=== PATIENT | male | born 1935 | race Caucasian/White ===

== ENCOUNTER 2019-04-24 18:58 | Inpatient (IN) ==
[2019-04-24] MEDS ORDERED: SODIUM CHLORIDE 0.9% 1,000 ML IV STA ×2 (19:26→21:36)
[2019-04-24 20:44] LABS: Basophils % 0.1 % (0.0-0.8); Hematocrit 41.7 VOL% (42.0-52.0); Immature Granulocytes % 0.7 %; Lymphocytes # 0.7 10*3/uL (1.4-4.0); Lymphocytes % 4.7 % (21.2-54.2); Mean Corpuscular Volume 97.2 FL (87-102); Mean Platelet Volume 10.4 FL (9.6-12.0); Monocytes % 9.2 % (1.7-12.7); Neutrophils % 85.3 % (38.7-73.9); Platelet Count 158 T/CUMM (130-400); Red Blood Count 4.29 MC/CUMM (3.8-5.5); Red Cell Distribution Width 12.5 % (9.3-17.3); White Blood Count 15.2 T/CUMM (4-12)
[2019-04-24 20:53] LABS: Amorphous Crystals,Urine Occasional /HPF (Few); Apearance,Urine CLOUDY (Clear); Bacteria,Urine Many /HPF (Few); Bilirubin,Urine Negative (Negative); Blood, Urine Large mg/dL (Negative); Glucose,Urine (UA) Negative (Negative); Hyaline Casts,Urine 52 /LPF (0-3); Ketones,Urine 20 mg/dL (Negative); Mucus,Urine Many /LPF (Occasional); Nitrite,Urine Negative (Negative); Protein,Urine 100 MG/DL; RBC,Urine 13 /HPF (0-4); Urine Color Amber (Yellow); Urine Specific Gravity 1.029 (1.001-1.035); Urine Urobilinogen < 2.0 EU/DL (0.2-1.0)
[2019-04-24 20:54] LABS: PT Patient Result 11.1 SECS (9.6-12.2); Partial Thromboplastin Time 26.7 SECS (20.8-36.0)
[2019-04-24 21:11] LABS: Acetaminophen < 2.0 UG/ML (10-30); Salicylate < 2.8 MG/DL (2.8-20)
[2019-04-24] MEDS ORDERED: AMPICILLIN/SULBACTAM 3,000 MG in SODIUM CHLORIDE 0.9% 100 ML IV STA (21:11)
[2019-04-24 21:12] LABS: Band Neutrophils 1 % (0-10); Lymphocytes 7 % (20-55); Macrocytosis Slight; Platelet Estimate Adequate; Segmented Neutrophils 86 % (50-85); Total Cells Counted 100
[2019-04-24 21:45] LABS: Alanine Aminotransferase 132 U/L (16-61); Albumin 2.8 G/DL (3.4-5.0); Alkaline Phosphatase 51 U/L (45-117); Aspartate Amino Transferase 451 U/L (0-37); Blood Urea Nitrogen 23 MG/DL (7-18); CKMB % 0.9 %; Calcium 8.6 MG/DL (8.5-10.1); Estimated Glom Filtration Rate 103 ML/MIN; Glucose 105 MG/DL (74-106); Osmolality,Calculated 286.1 MOS/KG (273-304); Total Protein 6.2 G/DL (6.4-8.3)
[2019-04-24] MEDS ORDERED: ONDANSETRON 4 MG/2 ML VIAL IV PRN (22:26)
[2019-04-24] MEDS ORDERED: SODIUM CHLORIDE 0.9% 1,000 ML IV ONE (22:26)
[2019-04-24] MEDS ORDERED: LORazepam 2 MG/1 ML VIAL ONE (22:54)
[2019-04-24] MEDS ORDERED: LORazepam 2 MG/1 ML VIAL IV ONE (23:01)
[2019-04-24] MEDS ORDERED: INFLUENZA VIRUS VACCINE 0.5 ML SYRINGE IM ONE (23:23)
[2019-04-25] MEDS: SODIUM CHLORIDE 0.9% 1,000 ML IV SCH ×7 (00:42→23:06)
[2019-04-25 05:15] LABS: Basophils % 0.1 % (0.0-0.8); Hemoglobin 12.8 GM/DL (14.0-18.0); Immature Granulocytes % 0.6 %; Immature Granulocytes Absolute 0.09 #; Lymphocytes % 7.2 % (21.2-54.2); Mean Corpuscular HGB Conc 35.6 GM/DL (32-36); Mean Corpuscular Volume 98.9 FL (87-102); Monocytes % 9.2 % (1.7-12.7); Neutrophils % 82.9 % (38.7-73.9); Platelet Count 128 T/CUMM (130-400); Red Blood Count 3.64 MC/CUMM (3.8-5.5); Red Cell Distribution Width 12.8 % (9.3-17.3); White Blood Count 14.4 T/CUMM (4-12)
[2019-04-25 05:46] LABS: Albumin 2.5 G/DL (3.4-5.0); Bilirubin,Total 1.8 MG/DL (0.2-1.0); Calcium 8.1 MG/DL (8.5-10.1); Osmolality,Calculated 294.3 MOS/KG (273-304); Total Protein 5.4 G/DL (6.4-8.3)
[2019-04-25 06:47] LABS: CKMB % 0.8 %
[2019-04-25 06:50] LABS: Troponin I 5.4 NG/ML (0.00-0.045)
[2019-04-25] MEDS ORDERED: ASPIRIN EC 81 MG TABLET PO SCH (09:00)
[2019-04-25] MEDS ORDERED: CETIRIZINE 10 MG TABLET PO SCH (09:00)
[2019-04-25] MEDS ORDERED: ESCITALOPRAM 10 MG TABLET PO SCH (09:00)
[2019-04-25] MEDS ORDERED: ATENOLOL 25 MG TABLET PO SCH (09:00)
[2019-04-25] MEDS ORDERED: PANTOPRAZOLE 40 MG TABLET PO SCH (09:00)
[2019-04-25 11:50] LABS: Cancer Antigen 19-9 < 1.2 U/ML (0-37)
[2019-04-25 12:09] LABS: Hepatitis B Core IgM Quant 0.07 Index; Hepatitis B Surface Ag Quant < 0.10 Index; Hepatitis B Surface Ag Result Negative (Negative); Hepatitis C Virus Ab Quant < 0.02 Index; Hepatitis C Virus Ab Result Negative (Negative)
[2019-04-25] MEDS: MORPHINE 4 MG/1 ML VIAL IV PRN ×2 (14:23→21:53)
[2019-04-25] MEDS: THIAMINE INJ 100 MG, FOLIC ACID INJ 1 MG, MULTIVITAMIN INJ 10 ML in DEXTROSE 5% NACL 0.... IV SCH (17:28)
[2019-04-25] MEDS ORDERED: LORazepam 2 MG/1 ML VIAL IV ONE (19:23)
[2019-04-26] MEDS ORDERED: PROPOFOL 1,000 MG/100 ML BOTTLE IV ONE (02:21)
[2019-04-26] MEDS ORDERED: PROPOFOL 0 MG/0 ML BOTTLE IV ONE (02:25)
[2019-04-26] MEDS: PROPOFOL 1,000 MG/100 ML BOTTLE IV SCH ×3 (02:30→22:02)
[2019-04-26 03:24] LABS: ABG Base Excess -1.1 MMOL/L (-2.5-2.5); ABG HCO3 23.5 MMOL/L (20-26); ABG Oxygen Saturation 99.8 % (95-100); ABG PCO2 41.4 MM HG (35-48); ABG PH 7.373 (7.35-7.45); ABG TCO2 21.4 MMOL/L (23-27); Allen Test Positive; Pt O2 Delivery Device Ventilator
[2019-04-26 04:00] LABS: Basophils % 0.1 % (0.0-0.8); Eosinophils % 0.4 % (0.00-10.9); Hematocrit 34.4 VOL% (42.0-52.0); Hemoglobin 11.5 GM/DL (14.0-18.0); Immature Granulocytes % 0.5 %; Immature Granulocytes Absolute 0.04 #; Lymphocytes # 0.8 10*3/uL (1.4-4.0); Mean Corpuscular HGB Conc 33.4 GM/DL (32-36); Mean Corpuscular Volume 104.2 FL (87-102); Mean Platelet Volume 10.7 FL (9.6-12.0); Monocytes % 8.8 % (1.7-12.7); Neutrophils % 80.2 % (38.7-73.9); Platelet Count 103 T/CUMM (130-400); Red Cell Distribution Width 13.2 % (9.3-17.3); White Blood Count 8.2 T/CUMM (4-12)
[2019-04-26 04:11] LABS: Albumin 2.3 G/DL (3.4-5.0); Bilirubin,Direct 0.3 MG/DL (0.0-0.20); Bilirubin,Indirect 1.6 MG/DL (0.0-1.0); Bilirubin,Total 1.9 MG/DL (0.2-1.0)
[2019-04-26 04:21] LABS: Albumin 2.3 G/DL (3.4-5.0); Bilirubin,Total 1.3 MG/DL (0.2-1.0); CKMB % 0.6 %; Calcium 7.5 MG/DL (8.5-10.1); Osmolality,Calculated 298.9 MOS/KG (273-304)
[2019-04-26 04:30] LABS: Troponin I 1.5 NG/ML (0.00-0.045)
[2019-04-26] MEDS: DEXT 5% NACL 0.45% KCL 20 MEQ 20 MEQ/1,000 ML BAG IV SCH ×3 (06:43→21:20)
[2019-04-26] MEDS: SODIUM CHLORIDE 0.9% 1,000 ML IV SCH (07:05)
[2019-04-26] MEDS ORDERED: cefTRIAXone 2,000 MG in SYRINGE 1 EACH IV SCH (08:30)
[2019-04-26] MEDS ORDERED: LANSOPRAZOLE ODT 30 MG TABLET PER TUBE SCH (09:00)
[2019-04-26] MEDS ORDERED: THIAMINE 200 MG/2 ML VIAL IV SCH (09:00)
[2019-04-26 10:30] LABS: Apearance,Urine CLEAR (Clear); Bilirubin,Urine Negative (Negative); Blood, Urine Small mg/dL (Negative); Glucose,Urine (UA) 50 mg/dL (Negative); Ketones,Urine 20 mg/dL (Negative); Mucus,Urine Few /LPF (Occasional); Nitrite,Urine Negative (Negative); Protein,Urine Negative; RBC,Urine 2 /HPF (0-4); Urine Color Amber (Yellow); Urine Specific Gravity 1.026 (1.001-1.035); Urine Urobilinogen < 2.0 EU/DL (0.2-1.0); WBC,Urine 1 /HPF (0-6)
[2019-04-26 10:57] LABS: ABG Base Excess -1.5 MMOL/L (-2.5-2.5); ABG HCO3 22.2 MMOL/L (20-26); ABG Oxygen Saturation 98.6 % (95-100); ABG PCO2 34.2 MM HG (35-48); ABG PO2 139.6 MM HG (80-95); ABG TCO2 23.2 MMOL/L (23-27); Allen Test Positive; Pt O2 Delivery Device Ventilator
[2019-04-26 11:16] LABS: Glucose,CSF 74 MG/DL (40-70)
[2019-04-26 11:27] LABS: Appearance,CSF Clear; Lymphocytes,CSF 75 %; Monocytes,CSF 13 %; Neutrophils,CSF 13 %; Red Blood Cell,CSF 35 C/CUMM; White Blood Cell,CSF 7 C/CUMM
[2019-04-26] MEDS: cefTRIAXone 2,000 MG in SYRINGE 1 EACH IV SCH (12:01)
[2019-04-26] MEDS: ASPIRIN CHEW 81 MG TABLET PO SCH (13:10)
[2019-04-26] MEDS: AMPICILLIN INJ 2,000 MG in SODIUM CHLORIDE 0.9% 100 ML IV SCH ×3 (13:12→21:21)
[2019-04-26] MEDS: SODIUM CHLORIDE 0.9% IV SCH (13:12)
[2019-04-26] MEDS: VANCOMYCIN INJ 1,500 MG in SODIUM CHLORIDE 0.9% 500 ML IV SCH (13:12)
[2019-04-26] MEDS: GANCICLOVIR IV SCH (13:12)
[2019-04-26] MEDS ORDERED: ACYCLOVIR INJ 800 MG in SODIUM CHLORIDE 0.9% 250 ML IV SCH (13:30)
[2019-04-26] MEDS: FUROSEMIDE 40 MG/4 ML VIAL IV SCH (16:07)
[2019-04-26] MEDS: THIAMINE INJ 100 MG, FOLIC ACID INJ 1 MG, MULTIVITAMIN INJ 10 ML in DEXTROSE 5% NACL 0.... IV SCH (16:12)
[2019-04-26] MEDS: PANTOPRAZOLE 40 MG VIAL IV SCH (21:21)
[2019-04-27] MEDS: cefTRIAXone 2,000 MG in SYRINGE 1 EACH IV SCH ×2 (00:33→11:44)
[2019-04-27] MEDS: AMPICILLIN INJ 2,000 MG in SODIUM CHLORIDE 0.9% 100 ML IV SCH ×6 (00:33→21:06)
[2019-04-27] MEDS: VANCOMYCIN INJ 1,500 MG in SODIUM CHLORIDE 0.9% 500 ML IV SCH ×2 (01:19→12:52)
[2019-04-27] MEDS: SODIUM CHLORIDE 0.9% IV SCH ×2 (02:44→13:54)
[2019-04-27] MEDS: GANCICLOVIR IV SCH ×2 (02:44→13:54)
[2019-04-27 03:14] LABS: ABG Base Excess 2.6 MMOL/L (-2.5-2.5); ABG HCO3 25.8 MMOL/L (20-26); ABG Oxygen Saturation 98.9 % (95-100); ABG PCO2 34.8 MM HG (35-48); ABG PH 7.488 (7.35-7.45); ABG TCO2 26.9 MMOL/L (23-27); Allen Test Positive; Pt O2 Delivery Device Ventilator
[2019-04-27] MEDS: PROPOFOL 1,000 MG/100 ML BOTTLE IV SCH ×3 (05:05→11:54)
[2019-04-27 06:10] LABS: Basophils % 0.1 % (0.0-0.8); Eosinophils % 0.2 % (0.00-10.9); Hematocrit 30.5 VOL% (42.0-52.0); Hemoglobin 10.4 GM/DL (14.0-18.0); Immature Granulocytes % 0.2 %; Immature Granulocytes Absolute 0.02 #; Lymphocytes # 0.8 10*3/uL (1.4-4.0); Lymphocytes % 9.1 % (21.2-54.2); Mean Corpuscular HGB Conc 34.1 GM/DL (32-36); Mean Corpuscular Volume 102.7 FL (87-102); Mean Platelet Volume 10.7 FL (9.6-12.0); Monocytes % 14.9 % (1.7-12.7); Neutrophils % 75.5 % (38.7-73.9); Platelet Count 102 T/CUMM (130-400); Red Blood Count 2.97 MC/CUMM (3.8-5.5); Red Cell Distribution Width 13.1 % (9.3-17.3); White Blood Count 8.5 T/CUMM (4-12)
[2019-04-27 06:29] LABS: Albumin 2.1 G/DL (3.4-5.0); Bilirubin,Total 0.6 MG/DL (0.2-1.0); Calcium 7.5 MG/DL (8.5-10.1); Osmolality,Calculated 296.3 MOS/KG (273-304); Total Protein 4.7 G/DL (6.4-8.3)
[2019-04-27 07:04] LABS: Troponin I 0.745 NG/ML (0.00-0.045)
[2019-04-27] MEDS: ASPIRIN CHEW 81 MG TABLET PO SCH (08:30)
[2019-04-27] MEDS: FUROSEMIDE 40 MG/4 ML VIAL IV SCH ×2 (08:30→16:01)
[2019-04-27] MEDS: PANTOPRAZOLE 40 MG VIAL IV SCH ×2 (08:32→21:06)
[2019-04-27] MEDS: POTASSIUM CHLORIDE 20 MEQ/15 ML UDCUP PER TUBE SCH ×4 (09:08→21:06)
[2019-04-27] MEDS ORDERED: fentaNYL INJ 1,250 MCG in SODIUM CHLORIDE 0.9% 225 ML IV PRN (10:30)
[2019-04-27] MEDS ORDERED: GLUCAGON 1 MG VIAL IM PRN (10:46)
[2019-04-27] MEDS ORDERED: DEXTROSE 10% 250 ML BAG IV PRN (10:46)
[2019-04-27] MEDS: INSULIN LISPRO 100 UNIT/ML SUBCUT SCH ×2 (12:00→17:40)
[2019-04-27] MEDS: THIAMINE INJ 100 MG, FOLIC ACID INJ 1 MG, MULTIVITAMIN INJ 10 ML in DEXTROSE 5% NACL 0.... IV SCH (16:03)
[2019-04-27] MEDS: fentaNYL INJ 2,500 MCG in SODIUM CHLORIDE 0.9% 450 ML IV PRN ×2 (16:25→22:00)
[2019-04-27] MEDS: LACTULOSE 20 GM/30 ML UDCUP NG SCH (21:14)
[2019-04-28] MEDS: cefTRIAXone 2,000 MG in SYRINGE 1 EACH IV SCH ×2 (00:44→13:00)
[2019-04-28] MEDS: AMPICILLIN INJ 2,000 MG in SODIUM CHLORIDE 0.9% 100 ML IV SCH ×6 (00:45→21:42)
[2019-04-28] MEDS: INSULIN LISPRO 100 UNIT/ML SUBCUT SCH ×4 (00:48→18:00)
[2019-04-28] MEDS: VANCOMYCIN INJ 1,500 MG in SODIUM CHLORIDE 0.9% 500 ML IV SCH (02:00)
[2019-04-28] MEDS: SODIUM CHLORIDE 0.9% IV SCH (02:02)
[2019-04-28] MEDS: GANCICLOVIR IV SCH ×2 (02:02→14:47)
[2019-04-28] MEDS ORDERED: VANCOMYCIN INJ 1,000 MG in SODIUM CHLORIDE 0.9% 250 ML IV SCH (02:30)
[2019-04-28] MEDS: PROPOFOL 1,000 MG/100 ML BOTTLE IV SCH (04:14)
[2019-04-28 04:45] LABS: Pt O2 Delivery Device Ventilator
[2019-04-28 04:46] LABS: ABG Base Excess 2.7 MMOL/L (-2.5-2.5); ABG HCO3 26.8 MMOL/L (20-26); ABG Oxygen Saturation 98.3 % (95-100); ABG PH 7.258 (7.35-7.45); ABG TCO2 29.2 MMOL/L (23-27)
[2019-04-28 04:50] LABS: ABG PCO2 72.2 MM HG (35-48)
[2019-04-28 05:12] LABS: Basophils % 0.1 % (0.0-0.8); Eosinophils # 0.2 10*3/uL (0.0-0.87); Eosinophils % 1.6 % (0.00-10.9); Hematocrit 33.8 VOL% (42.0-52.0); Hemoglobin 11.2 GM/DL (14.0-18.0); Immature Granulocytes % 0.6 %; Immature Granulocytes Absolute 0.06 #; Lymphocytes # 1.1 10*3/uL (1.4-4.0); Lymphocytes % 10.3 % (21.2-54.2); Mean Corpuscular HGB Conc 33.1 GM/DL (32-36); Mean Corpuscular Volume 105.3 FL (87-102); Mean Platelet Volume 10.8 FL (9.6-12.0); Monocytes % 16.9 % (1.7-12.7); Neutrophils % 70.5 % (38.7-73.9); Platelet Count 111 T/CUMM (130-400); Red Blood Count 3.21 MC/CUMM (3.8-5.5); Red Cell Distribution Width 13.6 % (9.3-17.3); White Blood Count 10.5 T/CUMM (4-12)
[2019-04-28 05:31] LABS: Calcium 7.3 MG/DL (8.5-10.1); Osmolality,Calculated 299.9 MOS/KG (273-304)
[2019-04-28 05:32] LABS: Band Neutrophils 1 % (0-10); Eosinophils 2 % (0-10); Lymphocytes 13 % (20-55); Segmented Neutrophils 74 % (50-85); Total Cells Counted 100
[2019-04-28 05:33] LABS: Anisocytosis 1+; Platelet Estimate Adequate
[2019-04-28] MEDS: fentaNYL INJ 2,500 MCG in SODIUM CHLORIDE 0.9% 450 ML IV PRN (06:52)
[2019-04-28 07:04] LABS: ABG Base Excess 6.1 MMOL/L (-2.5-2.5); ABG HCO3 31.1 MMOL/L (20-26); ABG Oxygen Saturation 98.3 % (95-100); ABG PCO2 46.6 MM HG (35-48); ABG PH 7.442 (7.35-7.45); ABG PO2 120.7 MM HG (80-95); ABG TCO2 32.5 MMOL/L (23-27); Allen Test Positive; Pt O2 Delivery Device Ventilator
[2019-04-28] MEDS: LACTULOSE 20 GM/30 ML UDCUP NG SCH ×2 (10:09→21:39)
[2019-04-28] MEDS: PANTOPRAZOLE 40 MG VIAL IV SCH ×2 (10:09→21:39)
[2019-04-28] MEDS: FUROSEMIDE 40 MG/4 ML VIAL IV SCH ×3 (10:12→21:39)
[2019-04-28] MEDS: ASPIRIN CHEW 81 MG TABLET PO SCH (10:12)
[2019-04-28] MEDS ORDERED: fentaNYL INJ 2,500 MCG in SODIUM CHLORIDE 0.9% 450 ML IV PRN (11:00)
[2019-04-28 11:25] LABS: VDRL Spinal Fluid Negative (Negative)
[2019-04-28] MEDS ORDERED: AMIODARONE 150 MG/3 ML VIAL ONE (12:23)
[2019-04-28] MEDS ORDERED: AMIODARONE INJ 150 MG in DEXTROSE 5% 100 ML IV ONE ×2 (12:23→13:30)
[2019-04-28] MEDS ORDERED: PROPOFOL 200 MG/20 ML VIAL IV ONE ×2 (12:40→12:43)
[2019-04-28] MEDS ORDERED: SUCCINYLCHOLINE 200 MG/10 ML VIAL ONE (12:41)
[2019-04-28] MEDS ORDERED: SUCCINYLCHOLINE 200 MG/10 ML VIAL IV ONE (12:44)
[2019-04-28] MEDS ORDERED: MIDAZOLAM 100 MG in SODIUM CHLORIDE 0.9% 80 ML IV PRN (12:45)
[2019-04-28] MEDS: MIDAZOLAM 100 MG in DEXTROSE 5% 80 ML IV PRN (13:20)
[2019-04-28] MEDS: fentaNYL INJ 2,500 MCG in DEXTROSE 5% 450 ML IV PRN (13:22)
[2019-04-28] MEDS ORDERED: SODIUM CHLORIDE 0.9% 500 ML IV ONE (14:02)
[2019-04-28] MEDS: DEXTROSE 5% IV SCH (14:47)
[2019-04-28] MEDS: DOCUSATE/SENNA 50-8.6 MG TABLET PER TUBE SCH (15:45)
[2019-04-28] MEDS: THIAMINE INJ 100 MG, FOLIC ACID INJ 1 MG, MULTIVITAMIN INJ 10 ML in DEXTROSE 5% NACL 0.... IV SCH (16:01)
[2019-04-28] MEDS ORDERED: FUROSEMIDE 20 MG/2 ML VIAL ONE (20:38)
[2019-04-28 21:30] LABS: Specimen Source CSF
[2019-04-28 23:16] LABS: Enterovirus PCR Source CSF
[2019-04-29] MEDS: cefTRIAXone 2,000 MG in SYRINGE 1 EACH IV SCH ×2 (00:22→12:16)
[2019-04-29] MEDS: INSULIN LISPRO 100 UNIT/ML SUBCUT SCH ×4 (00:43→18:08)
[2019-04-29] MEDS ORDERED: SODIUM CHLORIDE 0.9% 500 ML IV ONE (01:50)
[2019-04-29] MEDS: DEXTROSE 5% IV SCH ×2 (02:00→15:15)
[2019-04-29] MEDS: AMPICILLIN INJ 2,000 MG in SODIUM CHLORIDE 0.9% 100 ML IV SCH ×2 (02:00→05:15)
[2019-04-29] MEDS: GANCICLOVIR IV SCH ×2 (02:00→15:15)
[2019-04-29] MEDS: PROPOFOL 1,000 MG/100 ML BOTTLE IV SCH (03:59)
[2019-04-29 04:28] LABS: Basophils % 0.2 % (0.0-0.8); Eosinophils # 0.1 10*3/uL (0.0-0.87); Eosinophils % 0.5 % (0.00-10.9); Hematocrit 31.9 VOL% (42.0-52.0); Immature Granulocytes % 0.6 %; Immature Granulocytes Absolute 0.08 #; Lymphocytes # 0.6 10*3/uL (1.4-4.0); Lymphocytes % 5.1 % (21.2-54.2); Mean Corpuscular HGB Conc 34.5 GM/DL (32-36); Mean Corpuscular Volume 100.6 FL (87-102); Mean Platelet Volume 10.9 FL (9.6-12.0); Neutrophils % 84.6 % (38.7-73.9); Platelet Count 114 T/CUMM (130-400); Red Blood Count 3.17 MC/CUMM (3.8-5.5); Red Cell Distribution Width 13.1 % (9.3-17.3); White Blood Count 12.5 T/CUMM (4-12)
[2019-04-29 04:38] LABS: ABG Base Excess 9.7 MMOL/L (-2.5-2.5); ABG HCO3 33.4 MMOL/L (20-26); ABG Oxygen Saturation 97.8 % (95-100); ABG PCO2 39.1 MM HG (35-48); ABG PH 7.536 (7.35-7.45); ABG PO2 79.8 MM HG (80-95); ABG TCO2 29.6 MMOL/L (23-27); Allen Test Positive; Pt O2 Delivery Device Ventilator
[2019-04-29 04:50] LABS: Calcium 7.1 MG/DL (8.5-10.1); Osmolality,Calculated 291.6 MOS/KG (273-304)
[2019-04-29 04:54] LABS: Albumin 1.9 G/DL (3.4-5.0); Bilirubin,Direct 0.18 MG/DL (0.0-0.20); Bilirubin,Indirect 1.2 MG/DL (0.0-1.0); Bilirubin,Total 1.4 MG/DL (0.2-1.0); Total Protein 4.8 G/DL (6.4-8.3)
[2019-04-29 05:19] LABS: Prealbumin 9.5 MG/DL (20-40)
[2019-04-29] MEDS ORDERED: MAGNESIUM SULF RIDER 2 GM in PREMIX 1 EACH IV PRN (05:59)
[2019-04-29] MEDS ORDERED: MAGNESIUM SULF RIDER 4 GM in PREMIX 1 EACH IV PRN (05:59)
[2019-04-29] MEDS: POTASSIUM CHLORIDE 20 MEQ/15 ML UDCUP PER TUBE PRN ×2 (06:17→08:18)
[2019-04-29] MEDS: LACTULOSE 20 GM/30 ML UDCUP NG SCH ×2 (08:18→20:59)
[2019-04-29] MEDS: DOCUSATE/SENNA 50-8.6 MG TABLET PER TUBE SCH (08:18)
[2019-04-29] MEDS: ASPIRIN CHEW 81 MG TABLET PO SCH (08:19)
[2019-04-29] MEDS: PANTOPRAZOLE 40 MG VIAL IV SCH ×2 (08:19→21:00)
[2019-04-29] MEDS: FUROSEMIDE 40 MG/4 ML VIAL IV SCH (08:22)
[2019-04-29] MEDS ORDERED: MAGNESIUM SULF RIDER 4 GM in PREMIX 1 EACH IV ONE (08:23)
[2019-04-29] MEDS ORDERED: DIGOXIN 0.5 MG/2 ML AMP IV ONE ×2 (08:31→09:15)
[2019-04-29] MEDS ORDERED: AMIODARONE INJ 150 MG in DEXTROSE 5% 100 ML IV ONE (08:32)
[2019-04-29] MEDS: POTASSIUM CHLORIDE 20 MEQ/15 ML UDCUP PER TUBE SCH ×4 (08:41→20:59)
[2019-04-29 09:20] LABS: ABG Base Excess 8.9 MMOL/L (-2.5-2.5); ABG HCO3 32.6 MMOL/L (20-26); ABG Oxygen Saturation 96.3 % (95-100); ABG PCO2 50.7 MM HG (35-48); ABG PH 7.443 (7.35-7.45); ABG PO2 75.9 MM HG (80-95); ABG TCO2 30.5 MMOL/L (23-27); Allen Test Positive; Pt O2 Delivery Device Ventilator
[2019-04-29] MEDS: fentaNYL INJ 2,500 MCG in DEXTROSE 5% 450 ML IV PRN (12:18)
[2019-04-29 13:34] LABS: West Nile Virus Ab, IgG, CSF Positive (Negative); West Nile Virus Ab, IgM, CSF Negative (Negative)
[2019-04-29 14:31] LABS: Adenovirus PCR Negative (Negative); Specimen Source CSF
[2019-04-29] MEDS: THIAMINE INJ 100 MG, FOLIC ACID INJ 1 MG, MULTIVITAMIN INJ 10 ML in DEXTROSE 5% NACL 0.... IV SCH (17:38)
[2019-04-30] MEDS: INSULIN LISPRO 100 UNIT/ML SUBCUT SCH ×3 (00:10→11:56)
[2019-04-30] MEDS: cefTRIAXone 2,000 MG in SYRINGE 1 EACH IV SCH (00:38)
[2019-04-30] MEDS: DEXTROSE 5% IV SCH ×2 (01:17→15:14)
[2019-04-30] MEDS: GANCICLOVIR IV SCH ×2 (01:17→15:14)
[2019-04-30 03:15] LABS: Allen Test Positive; Pt O2 Delivery Device Ventilator
[2019-04-30 03:16] LABS: ABG Base Excess 9.8 MMOL/L (-2.5-2.5); ABG HCO3 33.8 MMOL/L (20-26); ABG Oxygen Saturation 96.4 % (95-100); ABG PH 7.513 (7.35-7.45); ABG PO2 82.5 MM HG (80-95); ABG TCO2 35.1 MMOL/L (23-27)
[2019-04-30] MEDS: PROPOFOL 1,000 MG/100 ML BOTTLE IV SCH (04:12)
[2019-04-30 04:32] LABS: Basophils % 0.2 % (0.0-0.8); Eosinophils # 0.3 10*3/uL (0.0-0.87); Eosinophils % 2.4 % (0.00-10.9); Hematocrit 29.2 VOL% (42.0-52.0); Hemoglobin 9.9 GM/DL (14.0-18.0); Immature Granulocytes % 1.1 %; Immature Granulocytes Absolute 0.12 #; Lymphocytes # 0.6 10*3/uL (1.4-4.0); Mean Corpuscular HGB Conc 33.9 GM/DL (32-36); Mean Corpuscular Volume 101.4 FL (87-102); Mean Platelet Volume 11.2 FL (9.6-12.0); Monocytes % 7.5 % (1.7-12.7); Neutrophils % 83.8 % (38.7-73.9); Platelet Count 112 T/CUMM (130-400); Red Blood Count 2.88 MC/CUMM (3.8-5.5); Red Cell Distribution Width 12.9 % (9.3-17.3); White Blood Count 11.3 T/CUMM (4-12)
[2019-04-30] MEDS: fentaNYL INJ 2,500 MCG in DEXTROSE 5% 450 ML IV PRN (05:02)
[2019-04-30] MEDS: MIDAZOLAM 100 MG in DEXTROSE 5% 80 ML IV PRN (05:02)
[2019-04-30 05:10] LABS: Eosinophils 3 % (0-10); Lymphocytes 4 % (20-55); Myelocytes 1 %; Platelet Estimate Decreased; Polychromasia Few; Segmented Neutrophils 88 % (50-85); Total Cells Counted 100
[2019-04-30 05:18] LABS: Calcium 7.3 MG/DL (8.5-10.1)
[2019-04-30 05:19] LABS: Albumin 1.7 G/DL (3.4-5.0); Bilirubin,Total 0.4 MG/DL (0.2-1.0); Total Protein 4.7 G/DL (6.4-8.3)
[2019-04-30 06:16] VITALS: BP 98/48
[2019-04-30] MEDS: DOCUSATE/SENNA 50-8.6 MG TABLET PER TUBE SCH (09:45)
[2019-04-30] MEDS: POTASSIUM CHLORIDE 20 MEQ/15 ML UDCUP PER TUBE SCH ×2 (09:46→15:13)
[2019-04-30] MEDS: LACTULOSE 20 GM/30 ML UDCUP NG SCH (09:46)
[2019-04-30] MEDS: ASPIRIN CHEW 81 MG TABLET PO SCH (09:46)
[2019-04-30] MEDS: PANTOPRAZOLE 40 MG VIAL IV SCH (09:46)
[2019-04-30] MEDS ORDERED: cefTAZidime 2,000 MG in SYRINGE 1 EACH IV SCH (10:00)
[2019-04-30] MEDS ORDERED: LORazepam 2 MG/1 ML VIAL IV PRN (15:02)
[2019-04-30] MEDS ORDERED: HYDROmorphone 2 MG/1 ML VIAL IV PRN (15:03)
== END 2019-04-30 16:00 | disposition expired | DRG 64 ==
LOC: EDBD → EDUNIT# → N.ED 18:58 → N.EDINP 22:26 → SUATTDRO 22:26 → SUPCPDRO 22:26 → N.3E 22:48 → N.CC 04-26 02:12
PROVIDERS: ADMIT Internal Medicine; ATTEND Internal Medicine